=== PATIENT | female | born 1990 | race Caucasian/White ===

== ENCOUNTER 2020-08-25 19:15 | Emergency (ER) | payer BC, OTHER ==
[~2020-08-25] VITALS: Ht 162.6 cm; Wt 90.0 kg
[2020-08-25 19:28] VITALS: BP 139/107
--- NOTE | 2020-08-25 19:28 | ED GU-Female ---
General Chief Complaint: Female Reproductive Stated Complaint: VAGINAL INGROWN HAIR/CYST Source: patient History of Present Illness Date Seen by Provider: Aug 25, 2020 Time Seen by Provider: 19:28 Initial Comments 30-year-old female presenting with swelling and pain to her labia. She states that she noticed this initially last night. She had been trying to squeeze press on the area ever since. She has been tried to charly it at home with a pen. She initially thought it was simply an ingrown hair. She had gotten some blood from the area by squeezing but was never able to express any pus. She was getting a lot of swelling and pain especially throughout the day. 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 This was aggravating the vaginal pain and labial swelling. She had tried going to urgent care this evening and they had referred her to the emergency department stating that she had a cyst that needed to be drained. Allergies and Home Medications Allergies Coded Allergies: No Known Allergies (Verified Allergy, Unknown, 08/25/20) Home Medications Doxycycline Hyclate 100 Mg Tablet, 100 MG PO BID Prescribed by: SOL REGAN on 08/25/202020 Hydrocodone/Acetaminophen 1 Each Tablet, 1 EACH PO Q4H PRN for PAIN-SEVERE (8- 10) Prescribed by: SOL REGAN on 08/25/202021 Ibuprofen 800 Mg Tablet, 800 MG PO Q8H PRN for PAIN Prescribed by: SOL REGAN on 08/25/202020 Patient Home Medication List Home Medication List Reviewed: Yes Review of Systems Review of Systems Constitutional: No chills; fever (low-grade since yesterday) EENTM: no symptoms reported Respiratory: no symptoms reported Cardiovascular: no symptoms reported Gastrointestinal: no symptoms reported Genitourinary: see HPI; denies discharge : No Musculoskeletal: no symptoms reported Skin: change in color (redness and swelling to her right labia) Psychiatric/Neurological: Anxiety Past Kopfadx-Lizdnm-Zedxbt Hx Past Med/Social Hx: Reviewed Nursing Past Med/Soc Hx Patient Social History Recent Foreign Travel: No Contact w/Someone Who Travel: No Physical Exam Vital Signs Vital Signs - First Documented 08/25/20 19:28 Temp 37.7 Pulse 114 Resp 20 B/P (MAP) 139/107 (118) O2 Delivery Room Air Capillary Refill : Height, Weight, BMI Height: '" Weight: lbs. oz. kg; BMI Method: General Appearance: WD/WN, moderate distress Genital/Rectal: other (right labia is erythematous and edematous compared to the left. There is no definite indurated area to charly. There is a small 3 mm hole inferior on the labia draining serous fluid. This area correlates with where the patient reports trying to drain the labia with a pin at home) Neurologic/Psychiatric: alert, oriented x 3 Skin: warm/dry, other (erythematous, edematous right labia majora) Progress/Results/Core Measures Suspected Sepsis SIRS Temperature: Pulse: Respiratory Rate: Blood Pressure / Mean: Results/Orders Lab Results Laboratory Tests Test 08/25/20 19:26 Range/Units Urine Color YELOW Urine Clarity CLEAR Urine pH 6.5 5-9 Urine Specific [place] 1.020 1.016-1.022 Urine Protein NEGATIVE NEGATIVE Urine Glucose (UA) NEGATIVE NEGATIVE Urine Ketones NEGATIVE NEGATIVE Urine Nitrite NEGATIVE NEGATIVE Urine Bilirubin NEGATIVE NEGATIVE Urine Urobilinogen 0.2 < = 1.0 MG/DL Urine Leukocyte Esterase NEGATIVE NEGATIVE Urine RBC (Auto) NEGATIVE NEGATIVE Urine RBC NONE /HPF Urine WBC 0-2 /HPF Urine Squamous Epithelial Cells 0-2 /HPF Urine Crystals NONE /LPF Urine Bacteria TRACE /HPF Urine Casts NONE /LPF Urine Mucus NEGATIVE /LPF Urine Culture Indicated NO My Orders Orders - SOL REGAN MD Ua Culture If Indicated (08/25/20 19:17) Urine Bedside (08/25/20 19:17) Ceftriaxone For Im Use (Rocephin For Im (08/25/20 19:59) Rx-Hydrocodone/Apap 5-325 Mg (Rx-Vicodin (08/25/20 20:00) Lidocaine 1% Inj 20 Ml (Xylocaine 1% Inj (08/25/20 20:00) Ice: Apply To Affected Area (08/25/20 19:59) Ketorolac Injection (Toradol Injection) (08/25/20 20:11) Medications Given in ED Current Medications Medications Dose Ordered Sig/Miguel Route Start Time Stop Time Status Last Admin Dose Admin Acetaminophen/ Hydrocodone Bitart 1 ea Q4H PRN PO 08/25/20 20:00 08/25/20 20:36 DC 08/25/20 20:30 1 EA Lidocaine HCl 2.1 ml ONCE ONCE INJ 08/25/20 20:00 08/25/20 20:01 DC 08/25/20 20:30 2.1 ML Vital Signs/I&O 08/25/20 19:28 Temp 37.7 Pulse 114 Resp 20 B/P (MAP) 139/107 (118) O2 Delivery Room Air Capillary Refill : Progress Note : Progress Note I counseled the patient that with no definite single area to try and drain any attempts lancing her right labia tonight would be equivalent to mutilating her labia and causing her more pain as I would be blindly stabbing at her genitals. If I felt there was a single definite area that was coalesced into a definite abscess to drain I would try to drain it but it seems that more of the swelling may be from the patient squeezing her labia and attempting to drain the ingrown hair herself. Will start antibiotics with Rocephin 1 gm IM here and follow up with doxycycline po. Hydrocodone for pain. Alternate ice packs and warm soaks. Call Gynecology in am, either her primary stock wetter from [facility] or Dr. Lee or provider of her choice for follow up on this. Departure Impression Primary Impression: Labial irritation Additional Impressions: Infection of labia Migraine Qualified Codes: G43.009 - Migraine without aura, not intractable, without status migrainosus Disposition: HOME, SELF-CARE Condition: Stable Departure-Patient Inst. Decision time for Depature: 20:23 Referrals: NO,LOCAL PHYSICIAN (PCP) Primary Care Physician SHRUTHI LEE DO Patient Instructions: Ingrown Hair, Vulvar Pain Add. Discharge Instructions: Take the full course of antibiotics to help with pain and swelling. Do not try to pop or squeeze the labia or ingrown hair area. Try alternating ice 15-20 minutes to the vaginal area with heat or a sitz bath to help with irritation. Check with Gynecology in the am to see if they can get you in to be seen in next day or two and if the area is not improving then it may need to be lanced if it has come to a single spot that could be cut into and drain the area Call your [facility] or you may check with Dr. Lee or [facility] of your choice All discharge instructions reviewed with patient and/or family. Voiced understanding. Scripts Ibuprofen (Ibuprofen) 800 Mg Tablet 800 MG PO Q8H PRN for PAIN for 10 Days, #30 TAB 0 Refills Prov: SOL REGAN MD 08/25/20 Hydrocodone/Acetaminophen (Hydrocodone-Acetamin 5-325 mg) 1 Each Tablet 1 EACH PO Q4H PRN for PAIN-SEVERE (8-10) for 3 Days, #18 TAB 0 Refills Prov: SOL REGAN MD 08/25/20 Doxycycline Hyclate (Doxycycline Hyclate) 100 Mg Tablet 100 MG PO BID for cellulitis for 10 Days, #20 TAB 0 Refills Prov: SOL REGAN MD 08/25/20 Images Female/Male 1 - Edema, Swelling, Tenderness (tender swollen edematous erythematous right labia majora without definite indurated area to try and charly and drain) SOL REGAN MD Aug 25, 2020 19:28
[2020-08-25 19:54] LABS: COLOR,URINE YELOW
[2020-08-25 19:55] LABS: BILIRUBIN,URINE NEGATIVE (NEGATIVE); CLARITY,URINE CLEAR; GLUCOSE, URINE (UA) NEGATIVE (NEGATIVE); KETONES,URINE NEGATIVE (NEGATIVE); LEUKOCYTE ESTERASE ,URINE NEGATIVE (NEGATIVE); NITRITE,URINE NEGATIVE (NEGATIVE); PH,URINE 6.5 (5-9); PROTEIN,URINE NEGATIVE (NEGATIVE)
[2020-08-25 19:56] LABS: BACTERIA,URINE TRACE /HPF; SQUAMOUS EPITHELIAL CELL,UR 0-2 /HPF; WBC,URINE 0-2 /HPF
[2020-08-25] MEDS ORDERED: cefTRIAXone 1,000 MG/2.86 ml vial (IM ONLY) IM STA (19:59)
[2020-08-25] MEDS ORDERED: RX-HYDROCODONE/APAP 5/325 MG #4 TAB PK PO PRN (20:00)
[2020-08-25] MEDS ORDERED: LIDOCAINE 1% INJ 20 ML 20 ML VIAL INJ ONE (20:00)
[2020-08-25] MEDS ORDERED: KETOROLAC 60 MG/2 ML VIAL IM STA (20:11)
[2020-08-25] MEDS ORDERED: DOXY100T2 PO (20:21)
[2020-08-25] MEDS ORDERED: IBUP-1780 PO (20:21)
[2020-08-25] MEDS ORDERED: ACHD5005 PO (20:21)
== END 2020-08-25 20:35 | disposition home or self-care (01) ==
LOC: ER FS 19:17
DX: N89.8 Other specified noninflammatory disorders of vagina (principal); G43.909 Migraine, unspecified, not intractable, without status migrainosus; F41.9 Anxiety disorder, unspecified
CPT/HCPCS: 81000; 84703; 99284